=== PATIENT | female | born 1960 | race Caucasian/White ===

== ENCOUNTER 2017-05-04 00:52 | Inpatient (IN) | payer MEDICARE ==
[~2017-05-04] VITALS: Ht 154.9 cm; Wt 56.7 kg
--- NOTE | 2017-05-04 01:05 | NUR ---
ADMISSION NOTES ADMITTED THIS 56 Y/O FEMALE PATIENT DIRECT ADMIT FROM [facility]. PT IS ON 5150 HOLD FOR DTS. PSYCH DX OF DEPRESSION. MEDICAL DX OF CHRONIC BACK PAIN, HTN, PACEMAKER, THORACIC DISC DSE, FRONTAL LOBE DEMENTIA. PER HOLD CALL 911 AND STATED THAT HIS HAD TAKEN 6 XANAX SINCE LAST NIGHT IN AN ATTEMPT TO KILL HERSELF. PT STATED SHE TOOK THE XANAX BECAUSE NOTHING IN HER LIFE WAS GOING RIGHT. PT WAS DEPRESSED BECAUSE BOTH HER PARENTS . IS TERMINALLY ILL AND SHE HAS HEART CONDITION AND THEY HAVE NO MONEY OR FOOD. UPON FACE TO FACE ASSESSMENT PATIENT IS A&O X2-3, ANXIOUS, V/S WNL, NO ACUTE RESPIRATORY DISTRESS. PSYCH DR. OWUSU MEDICAL DR. OLSEN BOTH AWARE AND NOTIFIED OF THE ADMISSION. SKIN ASSESSMENT DONE. SKIN CLEAR AND INTACT. MRSA SWAB NARES TAKEN. BELONGINGS AND CONTRABAND CHECKED AND PLACED IN THE SAFE CABINET. PATIENT RIGHT HAND BOOK GIVEN AND EXPLAINED TO THE PT. ALL NEEDS ATTENDED AND ANTICIPATED. WILL CONTINUE TO MONITOR FOR SAFETY AND BEHAVIOR.
[2017-05-04] MEDS ORDERED: LORAZEPAM 0.5 MG TABLET ONE (01:25)
[2017-05-04] MEDS ORDERED: MAGNESIUM HYDROXIDE 30 ML UDC PO PRN (01:30)
[2017-05-04] MEDS ORDERED: MAG HYDROX/AL HYDROX/SIMETH 30 ML UDC PO PRN (01:30)
[2017-05-04] MEDS ORDERED: FOLI1TAB16 PO (02:50)
[2017-05-04] MEDS ORDERED: BUPR100T6 PO (02:50)
[2017-05-04] MEDS ORDERED: ATOR80TA PO (02:50)
[2017-05-04] MEDS ORDERED: FLUO10CA26 PO (02:50)
[2017-05-04] MEDS ORDERED: ASPI81TA2 PO (02:50)
[2017-05-04] MEDS ORDERED: FLUO90CA4 PO (02:50)
[2017-05-04 03:01] VITALS: BP 134/99
[2017-05-04 06:35] LABS: CHOLESTEROL 168 mg/dL (<200); HDL CHOLESTEROL 61 mg/dL (40-60); LDL 88 mg/dL (0-99); TRIGLYCERIDES 106 mg/dL (30-150)
[2017-05-04 08:16] VITALS: BP 119/76
[2017-05-04] MEDS ORDERED: METO25TA3 PO (08:16)
--- NOTE | 2017-05-04 13:25 | NUR ---
gps hospital account liaison: md visit seen by dr. everett with order to continue home meds. orders carried out and acknowledged.
--- NOTE | 2017-05-04 15:27 | NUR ---
Initial Discharge Plan: Per patient she lives in a one bedroom apartment with her son and in [place]; [address] [place] [address] / [phone]. She would like to return home for discharge. SW spoke with pt's , Brendan [phone], who stated that patient will be able to return home. stated that either he or his son will be able to provide transport for patient. SW will arrange safe discharge.SW will provide referrals for substance use and will set up psychiatrist appointment.
[2017-05-04 16:00] VITALS: BP 134/78
[2017-05-04] MEDS: FLUOXETINE HCL 20 MG CAPSULE PO SCH (16:25)
[2017-05-04] MEDS: ACETAMINOPHEN 325 MG TABLET PO PRN (18:21)
[2017-05-04 20:00] VITALS: BP 139/85
[2017-05-04] MEDS: ARIPIPRAZOLE 2 MG TABLET PO SCH (21:33)
[2017-05-04] MEDS: TEMAZEPAM 7.5 MG CAPSULE PO PRN (22:45)
[2017-05-05 06:33] LABS: BASOPHILS % (AUTO) 0.3 % (0.0-2.0); EOSINOPHILS % (AUTO) 0.2 % (0.0-6.0); HEMATOCRIT 42 % (33-45); HEMOGLOBIN 14.3 g/dL (11.5-14.8); LYMPHOCYTES % (AUTO) 21.9 % (20.0-44.0); MEAN CORPUSCULAR HEMOGLOBIN 30 PG (26.0-33.0); MEAN CORPUSCULAR HGB CONC 34 g/dl (31.0-36.0); MEAN CORPUSCULAR VOLUME 88 fL (82-100); MONOCYTES # (AUTO) 0.5 /CMM (0.1-1.30); MONOCYTES % (AUTO) 5.4 % (2.0-12.0); NEUTROPHILS # (AUTO) 6.5 /CMM (1.8-8.9); NEUTROPHILS % (AUTO) 72.2 % (43.0-81.0); PLATELET COUNT (AUTO) 236 /CMM (150-450); RDW COEFFICIENT OF VARIATION 14.4 (11.5-15.0); RED BLOOD CELL COUNT(AUTO) 4.84 MIL/uL (4.0-5.2)
[2017-05-05 07:19] LABS: ALBUMIN 3.8 g/dL (3.4-5.0); BILIRUBIN,TOTAL 0.6 mg/dL (0.2-1.0); CALCIUM, SERUM 9.2 mg/dL (8.5-10.1); CREATININE 0.7 mg/dL (0.6-1.3); POTASSIUM 3.7 mmol/L (3.5-5.1); TOTAL PROTEIN, SERUM 7.9 g/dL (6.4-8.2)
[2017-05-05 08:00] VITALS: BP 120/76
[2017-05-05] MEDS: FOLIC ACID 1 MG TABLET PO SCH (09:28)
[2017-05-05] MEDS: FLUOXETINE HCL 20 MG CAPSULE PO SCH (09:28)
[2017-05-05] MEDS: ASPIRIN 81 MG TAB.CHEW PO SCH (09:28)
[2017-05-05 16:10] VITALS: BP 135/81
[2017-05-05 20:00] VITALS: BP 128/87
[2017-05-05] MEDS: ACETAMINOPHEN 325 MG TABLET PO PRN (20:19)
[2017-05-05] MEDS: ARIPIPRAZOLE 2 MG TABLET PO SCH (21:34)
[2017-05-05] MEDS: LORAZEPAM 0.5 MG TABLET PO PRN (23:22)
--- NOTE | 2017-05-05 23:23 | NUR ---
RN GPS NOTES PT. C/O ANXIETY , ATIVAN O.5 MG PO PRN GIVEN PER PT. REQUEST
[2017-05-06 08:10] VITALS: BP 130/85
[2017-05-06] MEDS: ASPIRIN 81 MG TAB.CHEW PO SCH (08:35)
[2017-05-06] MEDS: FOLIC ACID 1 MG TABLET PO SCH (08:35)
[2017-05-06] MEDS: ATORVASTATIN 40 MG TABLET PO SCH (08:35)
[2017-05-06] MEDS: FLUOXETINE HCL 20 MG CAPSULE PO SCH (08:35)
[2017-05-06] MEDS ORDERED: METOPROLOL SUCCINATE 25 MG TAB.SR.24H PO SCH (09:00)
[2017-05-06] MEDS: LORAZEPAM 0.5 MG TABLET PO PRN ×2 (11:08→17:19)
[2017-05-06 16:00] VITALS: BP 132/77
[2017-05-06 19:57] VITALS: BP 124/86
[2017-05-06] MEDS: ACETAMINOPHEN 325 MG TABLET PO PRN (19:58)
[2017-05-06] MEDS: ARIPIPRAZOLE 2 MG TABLET PO SCH (21:37)
[2017-05-06] MEDS: TEMAZEPAM 7.5 MG CAPSULE PO PRN (22:42)
[2017-05-07] MEDS: LORAZEPAM 0.5 MG TABLET PO PRN ×3 (00:41→17:12)
--- NOTE | 2017-05-07 00:43 | NUR ---
RN GPS NOTES PT. C/O ANXIETY , ATIVAN O.5 MG PO PRN GIVEN PER PT. REQUEST
--- NOTE | 2017-05-07 07:27 | NUR ---
RN GPS NOTES ALL NEEDS MET AND ANTICIPATED , DENIES SI/ HI DURING SHIFT , NO ACUTE DISTRESS NOTED , ENDORSE TO NEXT SHIFT FOR CONTINUITY OF CARE.
[2017-05-07 08:00] VITALS: BP 140/84
[2017-05-07] MEDS: FLUOXETINE HCL 20 MG CAPSULE PO SCH (08:38)
[2017-05-07] MEDS: FOLIC ACID 1 MG TABLET PO SCH (08:38)
[2017-05-07] MEDS: ATORVASTATIN 40 MG TABLET PO SCH (08:38)
[2017-05-07] MEDS: ASPIRIN 81 MG TAB.CHEW PO SCH (08:38)
[2017-05-07] MEDS: ACETAMINOPHEN 325 MG TABLET PO PRN ×2 (09:12→17:12)
--- NOTE | 2017-05-07 09:12 | NUR ---
RN GPS NOTES PT. REPORTS HEADACHE , REQUESTED TYLENOL, ADMINISTERED TYLENOL PO ORDERED, PER PATIENT REQUEST. WILL CONTINUE TO MONITOR.
--- NOTE | 2017-05-07 09:12 | NUR ---
RN GPS NOTES PT. C/O ANXIETY , ATIVAN O.5 MG PO PRN GIVEN PER PT. REQUEST, WILL CONTINUE TO MONITOR.
[2017-05-07 16:00] VITALS: BP 150/62
--- NOTE | 2017-05-07 17:12 | NUR ---
RN GPS NOTES PT. C/O ANXIETY , ATIVAN O.5 MG PO PRN GIVEN PER PT. REQUEST, WILL CONTINUE TO MONITOR.
--- NOTE | 2017-05-07 17:12 | NUR ---
RN GPS NOTES PT. REPORTS HEADACHE , REQUESTED TYLENOL, ADMINISTERED TYLENOL PO ORDERED, PER PATIENT REQUEST. WILL CONTINUE TO MONITOR.
--- NOTE | 2017-05-07 17:47 | NUR ---
GPS/RN DR PRESCOTT CALLED UNIT AND CONFIRMED CONSULTATION, STATED THAT HE WOULD COME SEE THE PATIENT TOMORROW 05/08/17 IN THE AFTERNOON.
[2017-05-07 20:45] VITALS: BP 135/96
[2017-05-07] MEDS: ARIPIPRAZOLE 2 MG TABLET PO SCH (22:16)
[2017-05-07] MEDS: TEMAZEPAM 7.5 MG CAPSULE PO PRN (22:37)
[2017-05-08] MEDS: ACETAMINOPHEN 325 MG TABLET PO PRN ×2 (00:43→16:47)
[2017-05-08] MEDS: FLUOXETINE HCL 20 MG CAPSULE PO SCH (08:16)
[2017-05-08] MEDS: ATORVASTATIN 40 MG TABLET PO SCH (08:16)
[2017-05-08] MEDS: FOLIC ACID 1 MG TABLET PO SCH (08:16)
[2017-05-08 08:19] VITALS: BP 127/90
[2017-05-08] MEDS: LORAZEPAM 0.5 MG TABLET PO PRN ×2 (08:40→16:46)
[2017-05-08] MEDS: ASPIRIN 81 MG TAB.CHEW PO SCH (08:40)
--- NOTE | 2017-05-08 08:40 | NUR ---
RN GPS NOTES PT. C/O ANXIETY , ATIVAN O.5 MG PO PRN GIVEN PER PT. REQUEST, WILL CONTINUE TO MONITOR.
--- NOTE | 2017-05-08 08:41 | NUR ---
RN GPS NOTES PT. C/O ANXIETY , ATIVAN O.5 MG PO PRN GIVEN PER PT. REQUEST, WILL CONTINUE TO MONITOR. Addendum: 05/08/17 at 1926 by SARAH NATHAN RN DUPLICATE NOTE
[2017-05-08 16:01] VITALS: BP 126/86
--- NOTE | 2017-05-08 16:40 | NUR ---
RN GPS NOTES PT. C/O ANXIETY , ATIVAN O.5 MG PO PRN GIVEN PER PT. REQUEST, WILL CONTINUE TO MONITOR.
[2017-05-08 20:28] VITALS: BP 134/94
[2017-05-08] MEDS: ARIPIPRAZOLE 2 MG TABLET PO SCH (21:16)
[2017-05-08] MEDS: TEMAZEPAM 7.5 MG CAPSULE PO PRN (21:20)
--- NOTE | 2017-05-09 04:30 | NUR ---
PATIENT AWAKE, WALKED TO STATION TO CONFIRM REGARDING DC LATER ON TODAY. CONFIRMED DISCHARGE TODAY AND REASSURED PATIENT. PATIENT RETURNED TO ROOM, FEELS REASSURED.
[2017-05-09 08:00] VITALS: BP 117/75
[2017-05-09] MEDS: FOLIC ACID 1 MG TABLET PO SCH (08:53)
[2017-05-09] MEDS: ASPIRIN 81 MG TAB.CHEW PO SCH (08:53)
[2017-05-09] MEDS: ATORVASTATIN 40 MG TABLET PO SCH (08:53)
[2017-05-09] MEDS: FLUOXETINE HCL 20 MG CAPSULE PO SCH (08:53)
--- NOTE | 2017-05-09 10:25 | NUR ---
PATIENT ACCESS REGISTRAR-NOTES PATIENT DISCHARGE TO HOME TODAY. DR. OWUSU AND DR. LANYE EDMONDS AWARE AND AGREES OF PATIENT DISCHARGE. PATIENT DID NOT VERBALIZE SI/HI,DENIES VISUAL/AUDITORY HALLUCINATIONS AT THE TIME OF DISCHARGE. ALL DISCHARGE MEDICATIONS WAS REVIEWED WITH THE PATIENT WITH UNDERSTANDING. RX WAS GIVEN TO THE PATIENT.PATIENT LEFT THE UNIT AMBULATORY IN STABLE CONDITION WITH ALL HER BELONGINGS PATIENT CLOTHING AND TEXTILES TEACHER BY SON VLADIMIR SONG VIA PRIVATE CAR.ASSISTED BY ONE ALUMINUM SIDING APPLICATOR STAFF IN THE LOBBY FOR SAFETY
--- NOTE | 2017-05-09 10:35 | NUR ---
FILTER PLANT OPERATOR-NOTES PATIENT LEFT HER OWN MEDICATIONS IN THE UNIT. CALLED [facility] BUT THEY CAN'T BE ABLE TO PICK IT UP.PER ENROLLMENT NURSE WE CAN SEND IT VIA MAIL .
--- NOTE | 2017-05-09 14:48 | NUR ---
SUBCONTRACT ADMINISTRATOR-VIRGIE CARDOSO( STEAMFITTER SUPERVISOR STAFF) SNACK BAR CASHIER PATIENT'S MEDICATION ( IN GREEN AND WHITE SMALL PLASTIC MEDICATION DISPENSER ) FOR MAILING. CALLED PATIENT VLADIMIR SONG AT [phone] AND LEFT THE MESSAGE.
--- NOTE | 2017-05-09 15:11 | NUR ---
Discharge Note Patient will be discharged to [address] [facility] [address] [place] [address] / [phone] via private transportation at 10:30am. SW spoke with patient's , Brendan [phone] who stated that he will be picking her up. Patient will follow up with her psychiatrist, Dr. Nobles, [address], [place] [address], on , 05/10/17 at 11am. machine clothing worker faxed over doctors notes to psychiatrist at fax number [phone]. Patient will follow up with her kiln maintenance Dr. Anuj Lanza [address] [facility] [address], [place], [place] [id number] on 05/16/17 at 3:30pm. machine clothing worker also faxed over doctors notes to fax number [phone]. Patient was also provided referrals for a psychologist, [facility] [address] [facility] [address], [place] . Patient will follow up with her psychiatrist, Dr. Nobles regarding her suicide attempt by overdosing/substance use.
== END 2017-05-09 10:25 | disposition home or self-care (01) | DRG 885 ==
LOC: GPS 00:52
PROVIDERS: ADMIT Psychiatry & Neurology Psychiatry; ATTEND Nurse Practitioner Acute Care
DX: F33.2 Major depressive disorder, recurrent severe without psychotic features (principal); I11.0 Hypertensive heart disease with heart failure; F03.90 Unspecified dementia, unspecified severity, without behavioral disturbance, psychotic disturbance, mood disturbance, and anxiety; I50.22 Chronic systolic (congestive) heart failure; Z95.810 Presence of automatic (implantable) cardiac defibrillator; Z73.6 Limitation of activities due to disability; G89.29 Other chronic pain; I25.2 Old myocardial infarction; R79.89 Other specified abnormal findings of blood chemistry; T42.4X5A Adverse effect of benzodiazepines, initial encounter; Y92.89 Other specified places as the place of occurrence of the external cause
CPT/HCPCS: 36415; 80053-TC; 80061-TC; 85025-TC; 87081-TC